=== PATIENT | female | born 1985 | race Caucasian/White ===

== ENCOUNTER → 2016-05-30 | Outpatient (CLI) | payer OTHER ==
--- NOTE | 2016-05-30 15:38 | US ---
EXAMINATION TYPE: US thyroid st tissue head/neck DATE OF EXAM: 05/30/2016 3:17 PM COMPARISON: No previous CLINICAL HISTORY: 30-year-old female E03.9 Hypothyroidism, R22.1 Swelling, mass, neck. Hypothyroidism , neck swelling, on thyroid meds GLAND SIZE: Right Lobe: 5.0 x 1.5 x 1.6 cm Left Lobe: 4.1 x 1.2 x 1.3 cm Isthmus Thickness: 0.5 cm There is mild heterogeneous glandular parenchyma. There is a single heterogeneously hyperechoic nodule measuring 7 x 6 x 6 mm in the left lower pole th at shows internal vascularity. IMPRESSION: 1. Heterogeneous thyroid gland could represent diffuse thyroiditis. 2. A solitary 7 mm solid nodule in the left lower pole. This can be followed if clinically indicated.
== END | disposition home or self-care (01) ==
LOC: RADUSWWP 15:01
PROVIDERS: ATTEND Family Medicine
DX: E04.1 Nontoxic single thyroid nodule (principal); E03.9 Hypothyroidism, unspecified; R93.8 Abnormal findings on diagnostic imaging of other specified body structures; R22.1 Localized swelling, mass and lump, neck
CPT/HCPCS: 76536

== ENCOUNTER 2016-12-18 12:30 | Emergency (ER) | payer OTHER ==
[2016-12-18 12:37] VITALS: TEMP 97.9
[2016-12-18] MEDS ORDERED: HYDROcodone/APAP 5-325MG 1 EACH TAB PO STA (13:08)
--- NOTE | 2016-12-18 13:47 | XR ---
EXAMINATION TYPE: XR hand complete RT DATE OF EXAM: 12/18/2016 CLINICAL HISTORY: Hand pain with laceration of the fourth digit after punching glass. TECHNIQUE: Frontal, lateral and oblique images of the right hand are obtained. COMPARISON: None. FINDINGS: There is a soft tissue laceration just proximal to the proximal interphalangeal joint of th e fourth digit with associated lobular soft tissue swelling dorsally. A ill-defined slightly radiopaq ue fragment measuring 1.2 mm could represent a foreign body. There is no evidence of cortical disruption, erosion, acute fracture, or dislocation. Osseous mineral ization is within normal limits. IMPRESSION: Laceration, focal lobular soft tissue swelling at the dorsal fourth proximal interphalang eal joint, and 1.2 mm slightly radiopaque fragment that could represent a foreign body. No fracture o r dislocation.
[2016-12-18] MEDS ORDERED: TOPICAL SKIN ADHESIVE 1 EACH AMP TOPICAL ONE (13:52)
--- NOTE | 2016-12-18 14:26 | ED ---
Wound/Laceration HPI - General Chief Complaint: Wound/Laceration Stated Complaint: Hand Injury Time Seen by Provider: 12/18/16 13:02 Source: patient Mode of arrival: ambulatory Limitations: no limitations - History of Present Illness Initial Comments: 31-year-old female patient presents to emergency department today for evaluation of a injury to her right hand. Patient states that she received some bad news approximately 20 minutes prior to arrival and did punch a picture on the wall. The picture did have a glass covering and she did sustain lacerations to her fourth and fifth finger on the right hand as well as some skin avulsion sites to the fourth finger, the thumb, and the fifth finger. Patient states she does have full range of motion of the fingers however it does hurt to flex. Patient denies any hand or wrist pain. She denies any numbness or tingling to the hand or fingers. Patient states that her tetanus vaccination was updated in 2012. She denies any other injuries or physical concerns. - Related Data Home Medications Medication Instructions Recorded Confirmed Levothyroxine Sodium [Synthroid] 120 mcg PO DAILY 09/11/13 04/16/15 traMADol HCL [Tramadol HCl] 50 mg PO DIRECTED PRN 09/11/13 04/16/15 Hydrocodone/Acetaminophen 1 tab PO Q6HR PRN 04/16/15 04/16/15 [Hydrocodone/Acetaminophen 7.5-300] LORazepam [Ativan] 0.5 mg PO DIRECTED PRN 04/16/15 04/16/15 Previous Rx's Medication Instructions Recorded Cyclobenzaprine [Flexeril] 10 mg PO TID PRN #10 tab 04/04/16 HYDROcodone/APAP 5-325MG [[place] 1 tab PO Q4HR PRN #10 tab 04/04/16 5-325] predniSONE 40 mg PO DAILY #4 tab 04/04/16 Cephalexin [Keflex] 500 mg PO QID #28 cap 12/18/16 Allergies Allergy/AdvReac Type Severity Reaction Status Date / Time furosemide [From Lasix] Allergy Nausea & Verified 12/18/16 12:37 Vomiting Review of Systems ROS Statement: Those systems with pertinent positive or pertinent negative responses have been documented in the HPI. ROS Other: All systems not noted in ROS Statement are negative. Past Medical History Past Medical History: Thyroid Disorder Additional Past Medical History / Comment(s): hep c-resolved History of Any Multi-Drug Resistant Organisms: MRSA Date of last positivie culture/infection: jun 2013 MDRO Source:: face Past Surgical History: Tubal Ligation Past Psychological History: No Psychological Hx Reported Smoking Status: Current every day smoker Past Alcohol Use History: None Reported Past Drug Use History: None Reported General Exam Limitations: no limitations General appearance: alert, in no apparent distress Head exam: Present: atraumatic, normocephalic, normal inspection Eye exam: Present: normal appearance, PERRL, EOMI. Absent: scleral icterus, conjunctival injection, periorbital swelling Respiratory exam: Present: normal lung sounds bilaterally. Absent: respiratory distress, wheezes, rales, rhonchi, stridor Cardiovascular Exam: Present: regular rate, normal rhythm, normal heart sounds. Absent: systolic murmur, diastolic murmur, rubs, gallop, clicks Extremities exam: Present: full ROM, tenderness (Tenderness over the PIP joints of the fourth and fifth digits on the left hand.), normal capillary refill, other (2 cm flap-like laceration noted over the PIP joint of the left fourth finger, 1 cm flap-like laceration noted over the). Absent: normal inspection Neurological exam: Present: alert, oriented X3, CN II-XII intact Psychiatric exam: Present: normal affect, normal mood Skin exam: Present: warm, dry, intact, normal color. Absent: rash Course Vital Signs 12/18/16 12/18/16 12:35 14:41 Temperature 97.9 F Pulse Rate 98 88 Respiratory 20 16 Rate Blood Pressure 178/106 136/81 O2 Sat by Pulse 98 96 Oximetry Procedures - Laceration Laceration #1 Consent Obtained: verbal consent Indication: laceration Site: other (Dorsal aspect of the right fourth finger over the PIP joint.) Size (cm): 2 Description: flap Depth: simple, single layer Anesthetic Used: lidocaine 1% Anesthesia Technique: local infiltration Amount (mls): 2 Pre-repair: wound explored, irrigated extensively Type of Sutures: nylon Size of Sutures: 4-0 Number of Sutures: 4 Technique: simple, interrupted Patient Tolerated Procedure: well, no complications Laceration #2 Consent Obtained: verbal consent Time Out Performed: Yes Indication: laceration Site: other (Dorsal aspect of the right fifth finger over the middle phalanx.) Size (cm): 1 Description: flap Depth: simple, single layer Anesthetic Used: lidocaine 1% Anesthesia Technique: local infiltration Amount (mls): 1 Pre-repair: wound explored, irrigated extensively Type of Sutures: nylon Size of Sutures: 4-0 Number of Sutures: 1 Technique: simple, interrupted Patient Tolerated Procedure: well, no complications Medical Decision Making - Medical Decision Making 31-year-old female patient presented to emergency department today for evaluation of lacerations and hand injury to the right hand. X-ray of the hand was obtained and showed no acute osseous abnormalities. There was a possible 1.2 mm foreign body, wound was irrigated extensively and explored no foreign bodies were found. Did suture the laceration to the right fourth finger and the right fifth finger. Skin avulsions were cleansed. Bacitracin applied and wounds were dressed by nursing staff. Patient will be given a prescription for Keflex as prophylaxis for infection. Patient educated regarding signs or symptoms of infection. Patient instructed to follow up with orthopedics for reevaluation if symptoms persist and 7-10 days. Patient started to return in 7 days for suture removal. Patient instructed her primary care physician for recheck in 1-2 days. Patient instructed to return for any new, worsening, or concerning symptoms. - Radiology Data Radiology results: report reviewed, image reviewed 3 views of the right hand are obtained and show a soft tissue laceration just proximal to the proximal interphalangeal joint of the fourth digit with associated lobular soft tissue swelling dorsally. An ill-defined slightly radiopaque fragment measuring 1.2 mm could represent a foreign body. There is no evidence of cortical disruption, erosion, acute fracture, or dislocation. Osseous mineralization is within normal limits. Impression by reads laceration, focal lobular soft tissue swelling at the dorsal fourth proximal interphalangeal joint, and 1.2 mm slightly radiopaque fragment that could represent a foreign body. No fracture or dislocation. Disposition Clinical Impression: Laceration of right ring finger, Laceration of right little finger, Avulsion of skin of finger Disposition: HOME SELF-CARE Condition: Good Instructions: Care For Your Stitches (ED), Finger Laceration (ED) Additional Instructions: Monitor for signs or symptoms of infection including redness, swelling, drainage of pus, fever, or chills. Return for removal of stitches in 7 days. Follow-up for repeat x-ray in 7-10 days if symptoms persist. Return immediately for any new, worsening, or concerning symptoms. Prescriptions: Cephalexin [Keflex] 500 mg PO QID #28 cap Referrals: Meeta Holt MD [Primary Care Provider] - 1-2 days Nacho Moise DO [Doctor of Osteopathic Medicine] - 1-2 days Time of Disposition: 14:25
[2016-12-18 14:43] VITALS: BP 136/81; PULSE 88; RESP 16
== END 2016-12-18 14:44 | disposition home or self-care (01) ==
LOC: EC 12:30
DX: S61.214A Laceration without foreign body of right ring finger without damage to nail, initial encounter (principal); S61.216A Laceration without foreign body of right little finger without damage to nail, initial encounter; E07.9 Disorder of thyroid, unspecified; F17.200 Nicotine dependence, unspecified, uncomplicated; Z79.899 Other long term (current) drug therapy; Z88.8 Allergy status to other drugs, medicaments and biological substances; W22.8XXA Striking against or struck by other objects, initial encounter
CPT/HCPCS: 12002; 99283